=== PATIENT | male | born 1995 | race Two or more races ===

== ENCOUNTER 2018-06-26 09:28 | Outpatient (CLI) | payer OTHER | END 2018-06-26 09:46 | disposition home or self-care (01) | LOC: RAD 501 09:28 | DX: Z00.00 Encounter for general adult medical examination without abnormal findings (principal) ==

== ENCOUNTER 2020-05-30 17:59 | Emergency (ER) | payer OTHER ==
[~2020-05-30] VITALS: Ht 180.3 cm; Wt 83.9 kg
== END 2020-05-30 20:38 | disposition home or self-care (01) ==
LOC: ER 17:59
DX: S93.401A Sprain of unspecified ligament of right ankle, initial encounter (principal); X50.0XXA Overexertion from strenuous movement or load, initial encounter; Y93.89 Activity, other specified; Y92.89 Other specified places as the place of occurrence of the external cause; Y99.8 Other external cause status